=== PATIENT | female | born 2000 | race Caucasian/White ===

== ENCOUNTER 2020-10-01 07:55 | Day surgery (SDC) | payer MEDICAID ==
[~2020-10-01] VITALS: Ht 175.3 cm; Wt 108.5 kg
[2020-10-01 08:48] VITALS: BP 120/97; PULSE 89; TEMP 98.8
[2020-10-01 09:20] VITALS: BP 108/94; PULSE 80; TEMP 98.1
--- NOTE | 2020-10-01 09:20 | NUR ---
PATIENT BROUGHT BACK VIA BED TO [facility]. AMBULATED TO CHAIR WITHOUT DIFFICULTY. PATIENT IS ALERT AND ORIENTED. SPEAKING WITH DOCTOR IN REGARDS TO RESULTS OF PROCUEDURE. MOTHER ARISTEO REMAINS AT BEDSIDE. IV INFUSING TO RIGHT FOREARM. PATIENT STATES RIGHT HAND FEELS NUMB. DENIES PAIN OR NAUSEA. REQUESTING JELLOW AND APPLE JUICE. CALL CRANE WITHIN REACH, WILL CONTIUE TO MONITOR.
[2020-10-01 09:35] VITALS: BP 120/97; PULSE 82
--- NOTE | 2020-10-01 09:35 | NUR ---
Patient tolerating food and drink without difficulty. Denies nausea. Will monitor.
[2020-10-01 09:50] VITALS: BP 126/86; PULSE 85
--- NOTE | 2020-10-01 09:50 | NUR ---
Patient states she would like to go home at this time. Vital signs stable. IV removed without difficulty. Patient to get dressed at this time.
--- NOTE | 2020-10-01 09:55 | NUR ---
Discharge instructions reviewed with patient and mother. Verbalized understanding. Copies given to family.
--- NOTE | 2020-10-01 10:00 | NUR ---
patient brought down to lobby via wheel chair. Mother Awa to drive patient home.
== END 2020-10-01 10:00 | disposition home or self-care (01) ==
LOC: SDCO 07:55
DX: K29.30 Chronic superficial gastritis without bleeding (principal); K29.80 Duodenitis without bleeding; K44.9 Diaphragmatic hernia without obstruction or gangrene; E66.01 Morbid (severe) obesity due to excess calories; M79.18 Myalgia, other site; Z79.899 Other long term (current) drug therapy; Z20.822 Contact with and (suspected) exposure to COVID-19; Z80.9 Family history of malignant neoplasm, unspecified; Z82.49 Family history of ischemic heart disease and other diseases of the circulatory system
CPT/HCPCS: J2704